=== PATIENT | female | born 1980 | race Caucasian/White ===

== ENCOUNTER → 2019-01-03 | Day surgery (SDC) | payer OTHER ==
[~2019-01-03] MED LIST: EFFEXOR XR150 MG PO
--- NOTE | ~2019-01-03 | PROC ---
[address] [place] [address] PROCEDURE REPORT Name: TOBIN WALLACE Room: [facility]#: [id number] Admission: 01/03/19 Attend Phys: Gerardo Hallman MD Discharge: Date of : 76 Report #: [id number] THIS REPORT FOR: //name// For GI report, please see the Provation report in Per[employer] 7 content. By: [id number] Records Staff TOM /JACKI
[2019-01-03 09:45] LABS: HEMATOCRIT 40.6 % (37.0-47.0); HEMOGLOBIN 13.5 gm/dL (12.0-15.0)
--- NOTE | 2019-01-07 15:06 | PATH ---
[facility] [address] [place] [address] PATHOLOGY RPT PROCEDURE Name: SANDRA GASTON Room: [facility]#: [id number] Admission: 01/03/19 Date of : 76 Discharge: Report #: [id number] Path Case #: [id number] [facility] Accession Number: [id number] . 01 Material submitted: . colon - ASCENDING COLON POLYP. Modifiers: ascending . 01 Clinical history: . Colon polyp . 02 Diagnosis: Ascending colon polyp: - Tubular adenoma, negative for high grade dysplasia. . (FRANCIA:mml; 01/07/2019) [facility] 01/07/2019 1152 Local . 02 Electronically signed: . Jacob Pike MD, Pathologist NPI- [id number] . 01 Gross description: . Received in formalin labeled "Sandra Gaston, ascending colon polyp," are two irregular, polypoid segments of pnion-brown soft tissue measuring 1.3 x 0.7 x 0.4 cm (inked black) and 0.9 x 0.8 x 0.7 cm (inked yellow) in greatest dimensions admixed with a 1.8 x 0.8 x 0.2 cm aggregate of smaller pinon-brown soft tissue fragments and yellow-brown vegetative/mucoid material. The inked segments are sectioned and submitted entirely in cassette A1, and the remaining material is filtered and submitted entirely in cassette A2. (DAC; 01/04/2019) XDC/XDC 01/04/2019 1134 Local . 02 Pathologist provided ICD-10: D12.2 . 02 CPT . 564049 Specimen Comment: A courtesy copy of this report has been sent to [phone], [phone] Specimen Comment: [phone] Specimen Comment: Report sent to / DR NICHOLAS Performed at: [address] [place] [id number] MD Moy Meza MD Phone: [phone] Performed at: [address] [place] [address] PATHOLOGY RPT PROCEDURE Name: SANDRA GASTON Room: [facility].#: [id number] Admission: 01/03/19 Date of : 76 Discharge: Report #: [id number] Path Case #: [id number] [address], [place] [id number] MD Jacob Pike MD Phone: [phone]
== END | disposition home or self-care (01) ==
LOC: M.SUR 07:33
PROVIDERS: Internal Medicine Gastroenterology
DX: D12.2 Benign neoplasm of ascending colon (principal); Z79.899 Other long term (current) drug therapy